=== PATIENT | male | born 1950 | race Caucasian/White ===

== ENCOUNTER → 2017-10-16 | Outpatient (CLI) | payer SELFPAY ==
[2017-10-16 14:16] LABS: BASOPHILS ABSOLUTE AUTO 0.02 K/mm3 (0.00-0.23); BASOPHILS PERCENT AUTO 0 % (0-2); EOSINOPHILS ABSOLUTE AUTO 0.07 K/mm3 (0.00-0.68); EOSINOPHILS PERCENT AUTO 1 % (0-6); Hematocrit 44.9 % (37.0-53.0); Hemoglobin 15.3 g/dL (13.5-17.5); IMMATURE GRAN ABSOLUTE AUTO 0.02 K/mm3 (0.00-0.10); IMMATURE GRAN PERCENT AUTO 0 % (0-1); LYMPHOCYTES ABSOLUTE AUTO 1.04 K/mm3 (0.84-5.20); LYMPHOCYTES PERCENT AUTO 21 % (21-46); MONOCYTES ABSOLUTE AUTO 0.42 K/mm3 (0.16-1.47); MONOCYTES PERCENT AUTO 8 % (4-13); Mean Corpuscular HGB 36.7 pg (26.0-34.0); Mean Corpuscular HGB Conc 34.1 g/dL (31.5-36.5); Mean Corpuscular Volume 108 fL (80-100); Mean Platelet Volume 9.8 fL (9.1-12.4); NEUTROPHILS ABSOLUTE AUTO 3.45 K/mm3 (1.96-9.15); NEUTROPHILS PERCENT AUTO 69 % (41-73); Platelet Count 146 K/mm3 (150-400); RDW Coefficient Variation 15.2 % (11.7-14.2); RDW Standard Deviation 59.8 fL (35.1-46.3); Red Blood Cell Count 4.17 M/mm3 (4.30-5.90); White Blood Cell Count 5.02 K/mm3 (4.00-11.30)
[2017-10-16 14:30] LABS: Alanine Aminotransfer (ALT/SGP 33 U/L (12-78); Albumin, Blood 2.6 g/dL (3.4-5.0); Albumin/Globulin Ratio 0.5 (0.8-1.8); Alk Phos 129 U/L (50-136); Anion Gap 8 mmol/L (6-16); Aspartate Aminotrans (AST/SGOT 55 U/L (12-37); Bilirubin, Total 4.6 mg/dL (0.1-1.0); Blood Urea Nitrogen 13 mg/dL (8-24); Bun/Creatinine Ratio 17.5 (12.0-20.0); CO2, Blood 23 mmol/L (21-32); Calcium, Blood 8.4 mg/dL (8.5-10.1); Chloride, Blood 107 mmol/L (98-108); Creatinine, Blood 0.74 mg/dL (0.60-1.20); Globulin, Blood 5.2 g/dL (2.2-4.0); Glomerular Filtration Rate >60 (60-); Glucose, Blood 86 mg/dL (70-99); Sodium, Blood 138 mmol/L (136-145); Total Protein, Blood 7.8 g/dL (6.4-8.2)
[2017-10-16 15:59] LABS: Bilirubin, Direct 1.2 mg/dL (0.0-0.3); Bilirubin, Indirect 3.4 mg/dL (0.1-0.7)
== END ==
LOC: LAB 13:34
PROVIDERS: Nurse Practitioner
DX: R53.83 Other fatigue (principal)
CPT/HCPCS: 80053; 82247; 82248; 83036; 84443; 85025

== ENCOUNTER 2017-11-14 01:04 | Day surgery (SDC) | payer SELFPAY ==
[2017-11-14 14:15] LABS: International Normalized Ratio 1.44; Prothrombin Time Results 15.2 Sec (9.7-11.5)
[2017-11-14 14:19] LABS: Alanine Aminotransfer (ALT/SGP 29 U/L (12-78); Albumin, Blood 2.4 g/dL (3.4-5.0); Albumin/Globulin Ratio 0.5 (0.8-1.8); Alk Phos 97 U/L (50-136); Anion Gap 7 mmol/L (6-16); Aspartate Aminotrans (AST/SGOT 43 U/L (12-37); Bilirubin, Total 2.1 mg/dL (0.1-1.0); Blood Urea Nitrogen 10 mg/dL (8-24); Bun/Creatinine Ratio 13.1 (12.0-20.0); CO2, Blood 23 mmol/L (21-32); Calcium, Blood 7.8 mg/dL (8.5-10.1); Chloride, Blood 108 mmol/L (98-108); Creatinine, Blood 0.77 mg/dL (0.60-1.20); Globulin, Blood 5.3 g/dL (2.2-4.0); Glomerular Filtration Rate >60 (60-); Glucose, Blood 86 mg/dL (70-99); Potassium, Blood 4.3 mmol/L (3.5-5.5); Sodium, Blood 138 mmol/L (136-145); Total Protein, Blood 7.7 g/dL (6.4-8.2)
[2017-11-14 14:25] LABS: Percent Saturation 43.5 % (20.0-50.0)
[2017-11-14 14:27] LABS: Alpha Feto Protein, Tumor Mkr 2.4 ng/mL (0.0-8.0)
[2017-11-14 15:17] LABS: Albumin, Body Fluid 0.8 g/dL
[2017-11-14 15:18] LABS: Appearance, Body Fluid Clear (Clear); Body Fluid WBC Count 137 /mm3 (0-999); Color, Body Fluid Yellow (None-Yellow); RBC Count, Body Fluid 431 /mm3 (0-0)
[2017-11-14 15:27] LABS: Total Cell Count, Body Fluid 100
[2017-11-15 07:04] LABS: HCV Non Reactive (NR)
== END 2017-11-14 22:47 | disposition home or self-care (01) ==
LOC: US 01:04 → LAB 01:04 → US 14:00
PROVIDERS: Internal Medicine Gastroenterology
PROC: 0W9G3ZZ Drainage of Peritoneal Cavity, Percutaneous Approach (ICD-10-PCS; principal; 2017-11-14)
DX: R18.8 Other ascites (principal); K74.60 Unspecified cirrhosis of liver; Z87.891 Personal history of nicotine dependence
CPT/HCPCS: 36415; 49083; 80053; 80074; 82042; 82105; 82140; 82728; 83540; 83550; 85610; 87015; 87070; 87116; 87205; 87206; 88108; 89051

== ENCOUNTER 2018-01-30 14:41 | Day surgery (SDC) | payer SELFPAY | END 2018-01-30 22:46 | disposition home or self-care (01) | LOC: US 14:41 | PROC: BW40ZZZ Ultrasonography of Abdomen (ICD-10-PCS; principal; 2018-01-30) | DX: R18.8 Other ascites (principal); K74.60 Unspecified cirrhosis of liver | CPT/HCPCS: 76705 ==